=== PATIENT | male | born 1955 | race African-American/Black ===

== ENCOUNTER 2016-11-03 15:39 | Inpatient (IN) | payer MEDICAID ==
[~2016-11-03] VITALS: Ht 182.9 cm; Wt 77.1 kg
[2016-11-03] MEDS ORDERED: UNOBMED (15:44)
--- NOTE | 2016-11-03 16:07 | Emergency Room Report ---
History of Present Illness General Chief Complaint: Chest Pain Source: Patient, EMS Present Illness HPI Patient is a 61-year-old male who presented for increased chest pain. Patient had prior history of high blood pressure. The patient was noted to be hypotensive by EMS. He had hadn't reported being short of breath prior to arrival. The patient had been recently admitted and discharged from [facility] after a two-day stay. The patient reports smoking one third pack of cigarettes a day. Allergies: Coded Allergies: No Known Allergies (Unverified , 11/03/16) Patient History Past Medical History: see triage record Reviewed Nursing Documentation: PMH: Agreed, PSxH: Agreed Nursing Documentation-PMH Hx Hypertension: Yes History Of Psychiatric Problem: Yes - Depression Review of Systems All Other Systems: negative except mentioned in HPI Physical Exam Vital Signs Date Time Temp Pulse Resp B/P Pulse Ox O2 Delivery O2 Flow Rate FiO2 11/03/16 15:38 102 18 114/81 99 Room Air Sp02 EP Interpretation: reviewed, normal General Appearance: normal inspection, well appearing, no apparent distress, alert, mild distress Head: atraumatic ENT: normal ENT inspection, hearing grossly normal, normal voice Neck: normal inspection, full range of motion, supple, no bony tend Respiratory: normal inspection, lungs clear, normal breath sounds, no respiratory distress, no retraction, no wheezing Cardiovascular #1: regular rate, rhythm, no edema Gastrointestinal: normal inspection, normal bowel sounds, non tender, soft, no guarding, no hernia Genitourinary: no CVA tenderness Musculoskeletal: normal inspection, back normal, normal range of motion Neurologic: normal inspection, alert, oriented x3, responsive, 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 Differential diagnosis included but was not limited to acute coronary syndrome, pulmonary embolism, pneumonia, aortic dissection, shingles, pneumothorax, aortic dissection, esophageal rupture, pericarditis. Because of complexity of patient's case laboratory testing and imaging studies were ordered. A EKG interpreted by me showed normal sinus rhythm rate of 98 with diffuse T wave inversion in the precordial leads as well as lateral T-wave inversion. The patient was given aspirin by EMS.Records were subsequently pain continues I which showed some coronary calcifications. The patient is also noted to have the been cocaine positive. The patient had been treated recently for Tamiflu for the positive influenza. Dr. Kashif Ferrer was contacted for inpatient management Labs Test 11/03/16 16:00 White Blood Count 7.8 K/UL (4.8-10.8) Red Blood Count 5.45 M/UL (4.70-6.10) Hemoglobin 16.7 G/DL (14.2-18.0) Hematocrit 47.6 % (42.0-52.0) Mean Corpuscular Volume 87 FL (80-99) Mean Corpuscular Hemoglobin 30.7 PG (27.0-31.0) Mean Corpuscular Hemoglobin Concent 35.0 G/DL (32.0-36.0) Red Cell Distribution Width 12.8 % (11.6-14.8) Platelet Count 289 K/UL (150-450) Mean Platelet Volume 6.4 FL (6.5-10.1) Neutrophils (%) (Auto) 51.5 % (45.0-75.0) Lymphocytes (%) (Auto) 40.4 % (20.0-45.0) Monocytes (%) (Auto) 7.2 % (1.0-10.0) Eosinophils (%) (Auto) 0.3 % (0.0-3.0) Basophils (%) (Auto) 0.5 % (0.0-2.0) D-Dimer 270 ng/mL (<500) Sodium Level 135 mEQ/L (135-145) Potassium Level 4.5 mEQ/L (3.4-4.9) Chloride Level 94 mEQ/L (98-107) Carbon Dioxide Level 23 mEQ/L (20-30) Anion Gap 18 (5-15) Blood Urea Nitrogen 27 mg/dL (7-23) Creatinine 2.2 mg/dL (0.7-1.2) Estimat Glomerular Filtration Rate 30.6 mL/min (>60) Glucose Level 112 mg/dL (74-106) Calcium Level 9.4 mg/dL (8.6-10.2) Total Bilirubin 0.6 mg/dL (0.0-1.2) Aspartate Amino Transf (AST/SGOT) 28 U/L (5-40) Alanine Aminotransferase (ALT/SGPT) 28 U/L (3-41) Alkaline Phosphatase 92 U/L (40-129) Total Creatine Kinase 272 U/L (38-174) Creatine Kinase MB 3.6 ng/mL (< 6.7) Creatine Kinase MB Relative Index 1.3 Troponin I < 0.30 ng/mL (<=0.30) Pro-B-Type Natriuretic Peptide 47 pg/mL (0-125) Total Protein 6.8 g/dL (6.6-8.7) Albumin 4.2 g/dL (3.5-5.2) Globulin 2.6 g/dL Albumin/Globulin Ratio 1.6 (1.0-2.7) EKG Diagnostic Results Rate: normal Rhythm: NSR ST Segments: other - precordial twave inversion, lateral t wave inversion Chest X-Ray Diagnostic Results EP Interpretation: No Findings: no effusion, no pneumothorax, other - cardiomegaly, interstitial edema Last Vital Signs Date Time Temp Pulse Resp B/P Pulse Ox O2 Delivery O2 Flow Rate FiO2 11/03/16 15:38 102 18 114/81 99 Room Air Status: unchanged Disposition: ADMITTED INPATIENT Condition: Stable Ranjit Stiles November 03, 2016 16:07
[2016-11-03 16:22] LABS: BASOPHILS % (AUTO) 0.5 % (0.0-2.0); EOSINOPHILS % (AUTO) 0.3 % (0.0-3.0); LYMPHOCYTES % (AUTO) 40.4 % (20.0-45.0); MEAN CORPUSCULAR HEMOGLOBIN 30.7 PG (27.0-31.0); MEAN CORPUSCULAR VOLUME 87 FL (80-99); MEAN PLATELET VOLUME 6.4 FL (6.5-10.1); MONOCYTES % (AUTO) 7.2 % (1.0-10.0); NEUTROPHILS % (AUTO) 51.5 % (45.0-75.0); PLATELET COUNT 289 K/UL (150-450); RED BLOOD COUNT 5.45 M/UL (4.70-6.10); RED CELL DISTRIBUTION WIDTH 12.8 % (11.6-14.8); WHITE BLOOD COUNT 7.8 K/UL (4.8-10.8)
[2016-11-03 16:30] VITALS: BP 94/70
[2016-11-03 16:36] LABS: ALBUMIN/GLOBULIN RATIO 1.6 (1.0-2.7); CALCIUM 9.4 mg/dL (8.6-10.2); CREATININE 2.2 mg/dL (0.7-1.2); GLOMERULAR FILTRATION RATE 30.6 mL/min (>60); POTASSIUM 4.5 mEQ/L (3.4-4.9); TOTAL PROTEIN 6.8 g/dL (6.6-8.7); TROPONIN I < 0.30 ng/mL (<=0.30)
[2016-11-03 16:47] LABS: CKMB 3.6 ng/mL (< 6.7)
[2016-11-03] MEDS ORDERED: OSELTAMIVIR PHO75 MG PO (16:49)
[2016-11-03] MEDS ORDERED: LISINOPRIL20 MG ORAL (16:49)
[2016-11-03] MEDS ORDERED: AMLODIPINE BESY10 MG ORAL (16:49)
[2016-11-03] MEDS ORDERED: INDAPAMIDE1.25 MG PO (16:49)
[2016-11-03] MEDS ORDERED: CRESTOR20 MG ORAL (16:49)
[2016-11-03] MEDS ORDERED: ASPIR 8181 MG ORAL (16:49)
[2016-11-03 17:13] VITALS: BP 100/76
[2016-11-03 17:50] VITALS: BP 107/80
[2016-11-03] MEDS ORDERED: Enoxaparin 60mg Inj SUBQ ONE (18:15)
[2016-11-03] MEDS ORDERED: Norco 5mg/325mg tab ORAL ONE (18:45)
[2016-11-03] MEDS ORDERED: Morphine Sulfate 2mg/ml Inj IVP PRN (19:30)
[2016-11-03] MEDS ORDERED: LORazepam Inj 2mg/ml 1ml IV PRN (19:30)
[2016-11-03] MEDS ORDERED: Nitroglycerin Subl 0.4mg tab (Bottle Of 25) SL PRN (19:30)
[2016-11-03] MEDS ORDERED: DuoNeb 0.5-3(2.5)mg/3ml neb HHN PRN (19:30)
--- NOTE | 2016-11-03 19:54 | History and Physical ---
History of Present Illness General Reason for Hospitalization: Chest Pain Present Illness HPI 61 y/o male with a PMHx significant for HTN presents to ED due to chest pain, non-radiating. He was recently discharged from [facility] where he was admitted for CP and HTN. He stated that he's been having the pain intermittently for the past 1 year. No N/V noted. In ER, he was found to be hypotensive with BP 84/60 upon arrival. Allergies: Coded Allergies: No Known Allergies (Unverified , 11/03/16) Medication History Scheduled Amlodipine Besylate* (Amlodipine Besylate*), 10 MG ORAL DAILY, (Reported) Aspirin* (Aspir 81*), 81 MG ORAL DAILY, (Reported) Indapamide (Indapamide), 1.25 MG PO DAILY, (Reported) Lisinopril (Lisinopril*), 20 MG ORAL DAILY, (Reported) Oseltamivir Phosphate (Oseltamivir Phosphate), 75 MG PO BID, (Reported) Rosuvastatin Calcium* (Crestor*), 20 MG ORAL HS, (Reported) Miscellaneous Medications Unable to Obtain Medications (Unable To Obtain Meds), (Reported) Patient History History Provided By: Patient Healthcare decision maker Resuscitation status Advanced Directive on File Social History Social History: (1) Smoker (2) No history of alcohol use (3) No illicit drug use Review of Systems All Other Systems: negative except mentioned in HPI Physical Exam Last 24 Hour Vital Signs Date Time Temp Pulse Resp B/P Pulse Ox O2 Delivery O2 Flow Rate FiO2 11/03/16 17:50 102 20 107/80 99 Room Air 11/03/16 17:13 97.6 99 22 100/76 97 Room Air 11/03/16 16:30 98 20 94/70 96 Room Air 11/03/16 16:00 94 18 Room Air 11/03/16 15:38 102 18 114/81 99 Room Air Laboratory Tests Test 11/03/16 16:00 White Blood Count 7.8 K/UL (4.8-10.8) Red Blood Count 5.45 M/UL (4.70-6.10) Hemoglobin 16.7 G/DL (14.2-18.0) Hematocrit 47.6 % (42.0-52.0) Mean Corpuscular Volume 87 FL (80-99) Mean Corpuscular Hemoglobin 30.7 PG (27.0-31.0) Mean Corpuscular Hemoglobin Concent 35.0 G/DL (32.0-36.0) Red Cell Distribution Width 12.8 % (11.6-14.8) Platelet Count 289 K/UL (150-450) Mean Platelet Volume 6.4 FL (6.5-10.1) L Neutrophils (%) (Auto) 51.5 % (45.0-75.0) Lymphocytes (%) (Auto) 40.4 % (20.0-45.0) Monocytes (%) (Auto) 7.2 % (1.0-10.0) Eosinophils (%) (Auto) 0.3 % (0.0-3.0) Basophils (%) (Auto) 0.5 % (0.0-2.0) D-Dimer 270 ng/mL (<500) Sodium Level 135 mEQ/L (135-145) Potassium Level 4.5 mEQ/L (3.4-4.9) Chloride Level 94 mEQ/L (98-107) L Carbon Dioxide Level 23 mEQ/L (20-30) Anion Gap 18 (5-15) H Blood Urea Nitrogen 27 mg/dL (7-23) H Creatinine 2.2 mg/dL (0.7-1.2) H Estimat Glomerular Filtration Rate 30.6 mL/min (>60) Glucose Level 112 mg/dL (74-106) H Calcium Level 9.4 mg/dL (8.6-10.2) Total Bilirubin 0.6 mg/dL (0.0-1.2) Aspartate Amino Transf (AST/SGOT) 28 U/L (5-40) Alanine Aminotransferase (ALT/SGPT) 28 U/L (3-41) Alkaline Phosphatase 92 U/L (40-129) Total Creatine Kinase 272 U/L (38-174) H Creatine Kinase MB 3.6 ng/mL (< 6.7) Creatine Kinase MB Relative Index 1.3 Troponin I < 0.30 ng/mL (<=0.30) Pro-B-Type Natriuretic Peptide 47 pg/mL (0-125) Total Protein 6.8 g/dL (6.6-8.7) Albumin 4.2 g/dL (3.5-5.2) Globulin 2.6 g/dL Albumin/Globulin Ratio 1.6 (1.0-2.7) Height (Feet): 6 Weight (Pounds): 170 Medications Current Medications Medications (Trade) Dose Ordered Sig/Genevieve Route PRN Reason Start Time Stop Time Status Last Admin Dose Admin Acetaminophen (Tylenol) 650 mg Q4H PRN ORAL fever 11/03/16 19:30 12/03/16 19:29 UNV Albuterol/ Ipratropium (DuoNeb 0.5-3(2.5)mg/3ml) 3 ml Q4H PRN HHN Shortness of Breath 11/03/16 19:30 11/08/16 19:29 UNV Aspirin (Ecotrin) 325 mg DAILY ORAL 11/04/16 09:00 12/04/16 08:59 UNV Dextrose/Sodium Chloride (D5 0.45% NS) 1,000 ml @ 75 mls/hr [id number] IV 11/03/16 20:22 12/03/16 20:21 UNV Diphenhydramine HCl (Benadryl) 25 mg Q6H PRN ORAL Itching/Pruritis 11/03/16 19:30 12/03/16 19:29 UNV Heparin Sodium (Porcine) (Heparin 5000 units/ml) 5,000 units EVERY 12 HOURS SUBQ 11/04/16 21:00 12/04/16 20:59 UNV Lorazepam (Ativan 2mg/ml 1ml) 0.5 mg Q4H PRN IV For Anxiety 11/03/16 19:30 11/10/16 19:29 UNV Morphine Sulfate (Morphine Sulfate) 2 mg Q4H PRN IVP Moderate Pain (Pain Scale 4-6) 11/03/16 19:30 11/10/16 19:29 UNV Nitroglycerin (Ntg) 0.4 mg Q5M PRN SL Prn Chest Pain 11/03/16 19:30 12/03/16 19:29 UNV Ondansetron HCl (Zofran) 4 mg Q6H PRN IVP Nausea & Vomiting 11/03/16 19:30 12/03/16 19:29 UNV Pantoprazole (Protonix) 40 mg DAILY ORAL 11/04/16 09:00 12/04/16 08:59 UNV Temazepam (Restoril) 15 mg DAILYPRN PRN ORAL Insomnia 11/03/16 19:30 11/10/16 19:29 UNV Assessment/Plan Problem List: (1) Hypotension ICD Codes: I95.9 - Hypotension, unspecified SNOMED: 59264873 (2) Renal failure (ARF), acute on chronic ICD Codes: N17.9 - Acute kidney failure, unspecified; N18.9 - Chronic kidney disease, unspecified SNOMED: 286875302 (3) Chest pain ICD Codes: R07.9 - Chest pain, unspecified SNOMED: 56939725 (4) ACS (acute coronary syndrome) ICD Codes: I24.9 - Acute ischemic heart disease, unspecified SNOMED: 281208420 Assessment/Plan IVF Cardiac consult Pain management EKG in am Monitor BUN/cr Monitor I&O O2 PRN Neb treatment PRN SOB DVT prophylaxis with heparin AM labs ROBEL SUTTON November 03, 2016 19:54
[2016-11-03 20:00] VITALS: BP 126/86
[2016-11-03] MEDS: D5 1/2NS 1,000 ML IV SCH (20:45)
[2016-11-04] VITALS: BP 114/85
[2016-11-04 04:00] VITALS: BP 112/82
[2016-11-04 07:28] LABS: BASOPHILS % (AUTO) 0.7 % (0.0-2.0); EOSINOPHILS % (AUTO) 0.4 % (0.0-3.0); LYMPHOCYTES % (AUTO) 44.3 % (20.0-45.0); MEAN CORPUSCULAR HEMOGLOBIN 27.5 PG (27.0-31.0); MEAN CORPUSCULAR HGB CONC 31.2 G/DL (32.0-36.0); MEAN CORPUSCULAR VOLUME 88 FL (80-99); MEAN PLATELET VOLUME 6.8 FL (6.5-10.1); MONOCYTES % (AUTO) 8.3 % (1.0-10.0); NEUTROPHILS % (AUTO) 46.3 % (45.0-75.0); PLATELET COUNT 346 K/UL (150-450); RED BLOOD COUNT 5.65 M/UL (4.70-6.10); RED CELL DISTRIBUTION WIDTH 12.9 % (11.6-14.8); WHITE BLOOD COUNT 8.4 K/UL (4.8-10.8)
[2016-11-04 07:43] LABS: ANION GAP 16 (5-15); CALCIUM 9.2 mg/dL (8.6-10.2); CARBON DIOXIDE 24 mEQ/L (20-30); CHLORIDE 96 mEQ/L (98-107); CHOLESTEROL 168 mg/dL (< 200); CHOLESTEROL/HDL RATIO 5.1 (3.3-4.4); CREATININE 1.4 mg/dL (0.7-1.2); GLOMERULAR FILTRATION RATE > 60 mL/min (>60); HEMOLYSIS 2; LDL CHOLESTEROL (CALC.) 92 mg/dL (60-99); MAGNESIUM 2.3 mg/dL (1.7-2.5); PHOSPHORUS 3.5 mg/dL (2.5-4.8); POTASSIUM 4.3 mEQ/L (3.4-4.9); SODIUM 136 mEQ/L (135-145)
[2016-11-04 07:56] LABS: TROPONIN I < 0.30 ng/mL (<=0.30)
[2016-11-04 08:20] VITALS: BP 126/86
[2016-11-04] MEDS ORDERED: Oseltamivir 75mg cap ORAL SCH (09:00)
[2016-11-04] MEDS ORDERED: Aspirin EC 325mg tab ORAL SCH (09:00)
[2016-11-04] MEDS: D5 1/2NS 1,000 ML IV SCH (09:20)
[2016-11-04] MEDS ORDERED: D5 1/2NS 1000ml IV ONE (11:08)
[2016-11-04] MEDS ORDERED: Heparin 5000 units/ml inj SUBQ SCH (21:00)
--- NOTE | 2016-11-05 14:47 | Cardiology Report ---
APPROVED REPORT EKG Measurement Heart [id number] AR [id number] [id number] Normal sinus rhythm Possible Left atrial enlargement Prolonged QT Abnormal ECG
--- NOTE | 2016-11-06 08:33 | Diagnostic Imaging Report ---
Indications: Elevated renal function tests Technique: Transabdominal real-time grayscale and duplex Doppler imaging of the kidneys, retroperitoneum, and urinary bladder was performed Findings: Comparison: None Right kidney measures 13.9 cm in length. Normal contour, echotexture, cortical thickness. Duplicated collecting system. Multiple anechoic cortical masses up to 2.3 cm.. No stones, other focal lesions, hydronephrosis, or obvious perinephric abnormalities. Left kidney measures 11.4 cm in length. Normal contour, echotexture, cortical thickness. Questionably duplicated collecting system. 7 mm echogenic non-shadowing nodular focus interpolar parenchymal-sinus junction. No additional focal lesions, hydronephrosis, or obvious perinephric abnormalities. The intrahepatic portion of inferior vena cava is patent and normal caliber. The urinary bladder is minimally distended with questionable mild mural thickening. Prostate volume 16 cc.. IMPRESSION: Bilateral duplicated renal collecting systems, developmental variant. No associated hydronephrosis. Multiple right renal cortical cysts 7 mm non-shadowing, nonobstructing stone versus nonspecific specular reflector interpolar region left kidney Apparent mild thickening of urinary bladder wall may be due to underdistention. Hypertrophy or cystitis not excludable. Nonenlarged prostate
--- NOTE | 2016-11-06 08:33 | Cardiology Report ---
APPROVED REPORT EKG Measurement Heart [id number] VT 148P24 [id number] Normal sinus rhythm Left axis deviation Voltage criteria for left ventricular hypertrophy Abnormal ECG
== END 2016-11-04 11:09 | disposition left against medical advice (07) | DRG 198 ==
LOC: EDBD 15:39 → EDBEDREQ 17:08 → EMR 17:15 → 2E 17:20 → EDBEDREQ 18:51 → 2E 19:24
DX: I24.9 Acute ischemic heart disease, unspecified (principal); N17.9 Acute kidney failure, unspecified; I95.9 Hypotension, unspecified; N18.9 Chronic kidney disease, unspecified; Z72.0 Tobacco use; F14.90 Cocaine use, unspecified, uncomplicated; J11.1 Influenza due to unidentified influenza virus with other respiratory manifestations
CPT/HCPCS: 36415; 71010; 76775; 80048; 80053; 80061; 82550; 82553; 83735; 83880; 84100; 84443; 84484; 85025; 85379; 87081; 87324; 93005

== ENCOUNTER 2018-01-08 19:21 | Emergency (ER) | payer MEDICAID ==
[~2018-01-08] VITALS: Ht 172.7 cm; Wt 81.6 kg
[~2018-01-08 19:21] MED LIST: AMLODIPINE BESY10 MG ORAL; ASPIR 8181 MG ORAL; CRESTOR20 MG ORAL; INDAPAMIDE1.25 MG PO; LISINOPRIL20 MG ORAL; OSELTAMIVIR PHO75 MG PO; UNOBMED
[2018-01-08 19:42] VITALS: BP 160/94
[2018-01-08 19:59] LABS: BASOPHILS % (AUTO) 1.5 % (0.0-2.0); EOSINOPHILS % (AUTO) 0.3 % (0.0-3.0); HEMATOCRIT 45.1 % (42.0-52.0); HEMOGLOBIN 14.8 G/DL (14.2-18.0); LYMPHOCYTES % (AUTO) 43.9 % (20.0-45.0); MEAN CORPUSCULAR VOLUME 84 FL (80-99); MONOCYTES % (AUTO) 6.6 % (1.0-10.0); NEUTROPHILS % (AUTO) 47.7 % (45.0-75.0); PLATELET COUNT 314 K/UL (150-450); RED BLOOD COUNT 5.35 M/UL (4.70-6.10); WHITE BLOOD COUNT 7.9 K/UL (4.8-10.8)
[2018-01-08 20:10] LABS: ANION GAP 12 mmol/L (5-15); BLOOD UREA NITROGEN 19 mg/dL (7-18); CALCIUM 9.1 MG/DL (8.5-10.1); CARBON DIOXIDE 25 MMOL/L (21-32); CHLORIDE 102 MMOL/L (98-107); CREATININE 1.2 MG/DL (0.55-1.30); POTASSIUM 2.9 MMOL/L (3.5-5.1); SODIUM 139 MMOL/L (136-145)
[2018-01-08 20:23] LABS: ALANINE AMINOTRANSFERASE 44 U/L (12-78); ALBUMIN 3.9 G/DL (3.4-5.0); ALBUMIN/GLOBULIN RATIO 0.9 (1.0-2.7); ALKALINE PHOSPHATASE 100 U/L (46-116); ASPARTATE AMINO TRANSFERASE 32 U/L (15-37); BILIRUBIN,TOTAL 0.8 MG/DL (0.2-1.0); CKMB 4.1 NG/ML (0.0-3.6); CREATINE KINASE 428 U/L (26-308)
[2018-01-08 20:28] LABS: APPEARANCE,URINE CLEAR; BILIRUBIN, URINE NEGATIVE (NEGATIVE); GLUCOSE, URINE (UA) NEGATIVE (NEGATIVE); KETONES,URINE NEGATIVE (NEGATIVE); LEUKOCYTE ESTERASE ,URINE 1+ (NEGATIVE); NITRITE,URINE NEGATIVE (NEGATIVE); PH,URINE 5 (4.5-8.0); PROTEIN,URINE NEGATIVE (NEGATIVE); UROBILINOGEN,URINE NORMAL MG/DL (0.0-1.0)
[2018-01-08 20:33] LABS: COLOR,URINE YELLOW
--- NOTE | 2018-01-08 22:21 | Emergency Room Report ---
History of Present Illness General Chief Complaint: Chest Pain Source: Patient, EMS Present Illness HPI This patient complains of chest pain that started earlier today. He describes it as a stabbing pain in his chest. He also has had some shortness of breath. He admits to using crack cocaine yesterday. He also smokes tobacco and drinks alcohol. He he states that he is also had an ongoing cough. He denies fever or chills. He denies nausea or vomiting. He has no other complaints. Allergies: Coded Allergies: No Known Allergies (Unverified , 11/03/16) Patient History Past Medical History: HTN, other - Hx of cocaine use Social History: Reports: smoking, alcohol use, drug use Reviewed Nursing Documentation: PMH: Agreed; PSxH: Agreed Nursing Documentation-PMH Hx Cardiac Problems: Yes Hx Hypertension: Yes Hx Cancer: No Hx Gastrointestinal Problems: No Hx Neurological Problems: No Review of Systems All Other Systems: negative except mentioned in HPI Physical Exam Vital Signs Date Time Temp Pulse Resp B/P (MAP) Pulse Ox O2 Delivery O2 Flow Rate FiO2 01/08/18 19:14 98.5 104 16 160/94 97 Room Air 98.4 Sp02 EP Interpretation: reviewed, normal General Appearance: no apparent distress, alert, GCS 15, non-toxic Head: normocephalic, atraumatic Eyes: bilateral eye normal inspection, bilateral eye PERRL ENT: hearing grossly normal, normal pharynx, no angioedema, normal voice Neck: full range of motion, supple/symm/no masses Respiratory: chest non-tender, lungs clear, normal breath sounds, no respiratory distress, no retraction, no accessory muscle use, speaking full sentences Cardiovascular #1: regular rate, rhythm, no edema Gastrointestinal: normal bowel sounds, non tender, soft, non-distended, no guarding, no rebound Rectal: deferred Musculoskeletal: back normal, gait/station normal, normal range of motion, non- tender Neurologic: alert, oriented x3, responsive, motor strength/tone normal, sensory intact, speech normal Psychiatric: judgement/insight normal, memory normal, mood/affect normal, no suicidal/homicidal ideation Skin: normal color, no rash, warm/dry, well hydrated Medical Decision Making Diagnostic Impression: Primary Impression: Chest pain ER Course This patient has nonspecific chest pain. Given the length of symptoms, this workup is very reassuring with negative cardiac enzymes, normal EKG, and normal chest x-ray. The patient is low risk and his symptoms are atypical for acute coronary syndrome. I have very low suspicion for PE, aortic dissection or pneumothorax based on history/physical, laboratory and radiologic workup. The patient is also instructed on the dangers of cocaine abuse. The patient was given close return precautions and followup instructions. Laboratory Tests Test 01/08/18 19:35 01/08/18 19:55 White Blood Count 7.9 K/UL (4.8-10.8) Red Blood Count 5.35 M/UL (4.70-6.10) Hemoglobin 14.8 G/DL (14.2-18.0) Hematocrit 45.1 % (42.0-52.0) Mean Corpuscular Volume 84 FL (80-99) Mean Corpuscular Hemoglobin 27.6 PG (27.0-31.0) Mean Corpuscular Hemoglobin Concent 32.7 G/DL (32.0-36.0) Red Cell Distribution Width 12.0 % (11.6-14.8) Platelet Count 314 K/UL (150-450) Mean Platelet Volume 5.4 FL (6.5-10.1) L Neutrophils (%) (Auto) 47.7 % (45.0-75.0) Lymphocytes (%) (Auto) 43.9 % (20.0-45.0) Monocytes (%) (Auto) 6.6 % (1.0-10.0) Eosinophils (%) (Auto) 0.3 % (0.0-3.0) Basophils (%) (Auto) 1.5 % (0.0-2.0) Sodium Level 139 MMOL/L (136-145) Potassium Level 2.9 MMOL/L (3.5-5.1) L Chloride Level 102 MMOL/L (98-107) Carbon Dioxide Level 25 MMOL/L (21-32) Anion Gap 12 mmol/L (5-15) Blood Urea Nitrogen 19 mg/dL (7-18) H Creatinine 1.2 MG/DL (0.55-1.30) Estimate Glomerular Filtration Rate > 60 mL/min (>60) Glucose Level 99 MG/DL (74-106) Calcium Level 9.1 MG/DL (8.5-10.1) Total Bilirubin 0.8 MG/DL (0.2-1.0) Aspartate Amino Transferase (AST) 32 U/L (15-37) Alanine Aminotransferase (ALT) 44 U/L (12-78) Alkaline Phosphatase 100 U/L (46-116) Total Creatine Kinase 428 U/L (26-308) H Creatine Kinase MB 4.1 NG/ML (0.0-3.6) H Creatine Kinase MB Relative Index 0.9 Troponin I 0.000 ng/mL (0.000-0.056) Total Protein 8.1 G/DL (6.4-8.2) Albumin 3.9 G/DL (3.4-5.0) Globulin 4.2 g/dL Albumin/Globulin Ratio 0.9 (1.0-2.7) L Urine Color Yellow Urine Appearance Clear Urine pH 5 (4.5-8.0) Urine Specific [place] 1.020 (1.005-1.035) Urine Protein Negative (NEGATIVE) Urine Glucose (UA) Negative (NEGATIVE) Urine Ketones Negative (NEGATIVE) Urine Occult Blood Negative (NEGATIVE) Urine Nitrite Negative (NEGATIVE) Urine Bilirubin Negative (NEGATIVE) Urine Urobilinogen Normal MG/DL (0.0-1.0) Urine Leukocyte Esterase 1+ (NEGATIVE) H Urine RBC 0-2 /HPF (0 - 0) H Urine WBC 2-4 /HPF (0 - 0) Urine Squamous Epithelial Cells None /LPF (NONE/OCC) Urine Bacteria Few /HPF (NONE) Urine Opiates Screen Negative (NEGATIVE) Urine Barbiturates Screen Negative (NEGATIVE) Phencyclidine (PCP) Screen Negative (NEGATIVE) Urine Amphetamines Screen Negative (NEGATIVE) Urine Benzodiazepines Screen Negative (NEGATIVE) Urine Cocaine Screen Positive (NEGATIVE) H Urine Marijuana (THC) Screen Negative (NEGATIVE) EKG Diagnostic Results Rate: normal Rhythm: NSR ST Segments: other - NSST Rhythm Strip Diag. Results EP Interpretation: yes Rate: 90's Rhythm: NSR, no PVC's, no ectopy Chest X-Ray Diagnostic Results Chest X-Ray Diagnostic Results : Chest X-Ray Ordered: Yes # of Views/Limited/Complete: 1 View Indication: Chest Pain EP Interpretation: Yes Interpretation: no consolidation, no effusion, no pneumothorax, no acute cardiopulmonary disease Impression: No acute disease Electronically Signed by: Ally Last Vital Signs Date Time Temp Pulse Resp B/P (MAP) Pulse Ox O2 Delivery O2 Flow Rate FiO2 01/08/18 19:42 98.4 104 16 160/94 97 Room Air 98.4 Status: improved Disposition: HOME, SELF-CARE Condition: Improved Referrals: NOT CHOSEN IPA/,REFERRING (PCP) Patient Instructions: Nonspecific Chest Pain Brianda Louis DO Jan 08, 2018 22:21
[2018-01-08] MEDS ORDERED: ZITHROMAX250 MG ORAL (23:09)
[2018-01-08 23:15] VITALS: BP 125/73
--- NOTE | 2018-01-09 11:32 | Diagnostic Imaging Report ---
Indication: Chest pain Technique: One view of the chest Comparison: 11/03/2016 Findings: The heart size is upper limits of normal. The aorta is tortuous and somewhat ectatic. Upper mediastinum is unremarkable. Inspiration is better on the current exam. Previously suspected interstitial edema is not evident on the current exam Impression: No acute process
--- NOTE | 2018-01-09 15:34 | Cardiology Report ---
APPROVED REPORT EKG Measurement Heart [id number] CO 142P7 [id number] Normal sinus rhythm Rightward axis Nonspecific T wave abnormality Prolonged QT Abnormal ECG
== END 2018-01-08 23:15 | disposition home or self-care (01) ==
LOC: EDBD 19:21 → EMR 19:50
DX: R07.89 Other chest pain (principal); I10 Essential (primary) hypertension
CPT/HCPCS: 36415; 71045; 80053; 80307; 81003; 82550; 82553; 84484; 85025; 93005; 99283